=== PATIENT | male | born 1995 ===

== ENCOUNTER 2022-09-27 12:45 | Emergency (ER) | payer BC, SELFPAY ==
[2022-09-27 12:55] VITALS: BP 160/99; PULSE 90; RESP 20; TEMP 36.4; O2SAT 98
--- NOTE | 2022-09-27 13:18 | ED.MALEGU ---
HPI - Male Genitourinary General Chief complaint: Urogenital-Male Stated complaint: Male Urogenital Time Seen by Provider: 09/27/22 13:10 Source: patient, RN notes reviewed and old records reviewed Mode of arrival: ambulatory Limitations: no limitations History of Present Illness HPI Narrative: 27-year-old male presents to [facility] with complaints of pain to the left testicle since 0130 this morning. Patient states the pain is sharp at times ranging 5-6 intensity states it feels like it is being squeezed off. Patient reports that he has taken some Tylenol and Ibuprofen with no relief of pain. Patient does report pain increases with ambulation. He reports no trauma to testicles, no recent heavy lifting, denies any chance of std exposure, denies any penile drainage. Onset (ago): hour(s) (0130 today) Severity scale (1-10): 6 Associated symptoms: Reports other (left testicle pain) Related Data Home Medications Medication Instructions Recorded Confirmed No Home Medications 09/27/22 09/27/22 Allergies Allergy/AdvReac Type Severity Reaction Status Date / Time No Known Allergies Allergy Mild Verified 09/27/22 13:01 Review of Systems Review of Systems: CONSTITUTIONAL: Denies fever, chills, or sweats. EYES: Denies visual changes, redness, or discharge. ENT: Denies rhinorrhea, congestion, sore throat, or otalgia. CARDIOVASCULAR: Denies chest pain, palpitations, or edema. RESPIRATORY: Denies cough or dyspnea. GASTROINTESTINAL: Denies abdominal pain, nausea, vomiting, or diarrhea. GENITOURINARY: Denies dysuria or hematuria.Reports left testicular pain starting around 0130 during night, SKIN: Denies rash or itching. MUSCULOSKELETAL: Denies back pain, joint pain, or myalgia. NEUROLOGIC: Denies headache, numbness, or weakness. PSYCHIATRIC: Denies anxiety or depression. All systems reviewed & are unremarkable except as noted in HPI and below PMFSH Past Medical History Medical History (Updated 09/28/22 @ 21:21 by Dulce Maria Saldivar NP) Asthma Fracture of both wrists Hypertension Surgical History Surgical History (Updated 09/28/22 @ 21:19 by Dulce Maria Saldivar NP
== END 2022-09-27 13:23 | disposition short-term general hospital (02) ==
PROVIDERS: Emergency Provider Registered Nurse
DX: N50.812 Left testicular pain (principal); I10 Essential (primary) hypertension; J45.909 Unspecified asthma, uncomplicated; Z87.891 Personal history of nicotine dependence
CPT/HCPCS: 99212; G0463

== ENCOUNTER 2022-09-27 13:39 | Emergency (ER) | payer BC, SELFPAY ==
--- NOTE | ~2022-09-27 | US_ITS ---
EXAMINATION: US scrotum doppler DATE: 09/27/2022 14:43 INDICATION: 12 hours of scrotal pain TECHNIQUE: Testicular sonogram utilizing grayscale and Doppler COMPARISON: None. FINDINGS: The right testis measures 3.5 x 2.7 x 2.2 cm. The left testis measures 4.2 x 2.8 x 2.4 cm. Symmetric normal grayscale appearance to both testes. There is normal vascular flow to both testes. The right e pididymis is normal with normal vascular flow. The left epididymis is normal with normal vascular snow w. There is no varicocele or hydrocele. IMPRESSION: 1. Normal scrotal ultrasound. Reviewed, dictated and finalized at location A.
[2022-09-27 13:50] VITALS: BP 145/105; PULSE 88; RESP 17; TEMP 36.4; O2SAT 99
--- NOTE | 2022-09-27 15:07 | ED.MALEGU ---
HPI - Male Genitourinary General Chief complaint: Urogenital-Male Stated complaint: testicular pain x 12 hours Time Seen by Provider: 09/27/22 14:47 Source: patient Mode of arrival: ambulatory Limitations: no limitations History of Present Illness HPI Narrative: 27 years old white male presents with left testicular pain started 1:30 AM after getting up to go to go to the bathroom. Patient denies any trauma or any sexual activities. Last sexual intercourse was over 4 years ago. History of hypertension, he smokes cigarettes, denies using marijuana and drinks occasionally. He denies any fever, chills, nausea, vomiting or urinary symptoms Related Data Home Medications Medication Instructions Recorded Confirmed No Home Medications 09/27/22 09/27/22 Allergies Allergy/AdvReac Type Severity Reaction Status Date / Time No Known Allergies Allergy Mild Verified 09/27/22 13:01 Review of Systems Review of Systems: All systems reviewed & are unremarkable except as noted in HPI and below PMFSH Family History Family History Mother Family history of thyroid disease Patient's mother is in good health Father Hypertension Patient's father is in good health Social History Social History Smoking status: Former smoker Smoking end date: 03/31/16 Alcohol intake: current Exam Narrative: General appearance: Well-developed, well-nourished Skin: Normal color Head: Normocephalic, nontraumatic Eyes: Clear conjunctiva ENT: Oropharynx normal, ears normal, nose normal Neck: Supple, nontender Chest and respiratory: Airway patent, no respiratory distress, no accessory muscle use Heart: Regular rate/rhythm Abdomen: Soft, nontender, no organomegaly, quiet bowel sounds Vascular: Normal peripheral pulses, normal capillary refill. Neurologic: Alert and oriented ?3, : Male genitals images: 1. Left testicle slightly bigger than the right 1, no erythema, no swelling, no tenderness, Course Reevaluation(s) Reevaluation #1: No changes compared to on arrival to the ED Date: 09/27/22 Time: 15:20 Vital Signs Vital signs: Vital Signs Temperature 36.4 C L 09/27/22 13:50 Pulse Rate 88 09/27/22 13:50 Respiratory Rate 17 09/27/22 13:50 Blood Pressure 145/105 H 09/27/22 13:50 Pulse Oximetry 99 09/27/22 13:50 Oxygen Delivery Room Air 09/27/22 13:50 Temperature 36.4 C L 09/27/22 13:50 Pulse Rate 88 09/27/22 13:50 Respiratory Rate 17 09/27/22 13:50 Blood Pressure 145/105 H 09/27/22 13:50 Pulse Oximetry 99 09/27/22 13:50 Oxygen Delivery Room Air 09/27/22 13:50 MDM - Male Genitourinary MDM Narrative Medical decision making narrative: Patient presents with left testicular pain, no trauma, physical exam showed unremarkable testicular and penile exam. Ultrasound showed no abnormalities. Left testicular pain could be secondary to tight underwear, positioning or anything and significant. Urine analysis came back within normal limit, patient to be discharged on Tylenol, ibuprofen as needed. Differential Diagnosis Differential diagnosis: Likely urinary tract infection, epididymitis and prostatitis Lab Data Attestation: I reviewed the patient's lab results. Labs: Lab Results 09/27/22 Range/Units 15:42 Urine Color Yellow (Yellow) Urine Appearance Clear (Clear) Urine pH 5.5 (5.0-9.0) Ur Specific [place] 1.023 (1.001-1.035) Urine Protein Negative (Negative) mg/dL Urine Glucose (UA) Negative (Negative) mg/dL Urine Ketones Trace H (Negative) mg/dL Ur Blood (Man) Neg
[2022-09-27 15:50] LABS: Appearance Urine Clear (Clear); Bilirubin Urine Negative (Negative); Blood Urine Negative (Negative); Color Urine Yellow (Yellow); Glucose Urine UA Negative (Negative); Ketones Urine Trace mg/dL (Negative); Leukocyte Esterase Ur Negative LEU/UL (Negative); Nitrate Urine Negative (Negative); Protein Urine Negative (Negative); Specific Grav Ur 1.023 (1.001-1.035); pH Urine 5.5 (5.0-9.0)
[2022-09-27 16:07] LABS: Add Urine Microscopic? NO
== END 2022-09-27 16:22 | disposition home or self-care (01) ==
PROVIDERS: Emergency Provider Emergency Medicine
DX: N50.812 Left testicular pain (principal); I10 Essential (primary) hypertension; F17.210 Nicotine dependence, cigarettes, uncomplicated
CPT/HCPCS: 76870; 81003; 93976; 99284